=== PATIENT | female | born 1960 | race Hispanic/Latino ===

== ENCOUNTER → 2023-05-20 | Outpatient (CLI) | payer OTHER ==
[~2023-05-20] MED LIST: IOHEXOL 350 MG/ML 100ML INFUS..BTL IV ONE
== END | disposition home or self-care (01) ==
LOC: RAH 08:40
PROVIDERS: ATTEND Internal Medicine Cardiovascular Disease
DX: R07.9 Chest pain, unspecified (principal)
CPT/HCPCS: 75574; Q9967

== ENCOUNTER 2023-07-08 06:02 | Day surgery (SDC) | payer OTHER ==
[2023-07-06 13:52] LABS: BASOPHILS # (AUTO) 0.06 K/uL (0.00-0.20); BASOPHILS % (AUTO) 0.7 % (0.0-5.0); EOSINOPHILS # (AUTO) 0.49 K/uL (0.00-0.70); EOSINOPHILS % (AUTO) 5.9 % (0.0-8.0); HEMATOCRIT 40.9 % (36-48); IMMATURE GRANULOCYTE ABSOLUTE 0.03 K/uL (0-1); LYMPHOCYTES # (AUTO) 3.5 K/uL (1.0-4.8); MEAN CORPUSCULAR HEMOGLOBIN 27.2 pg (27.0-33.0); MEAN CORPUSCULAR HGB CONC 31.8 g/dL (32.0-36.0); MEAN CORPUSCULAR VOLUME 85.6 fL (79-99); MONOCYTES # (AUTO) 0.8 K/uL (0.1-1.0); MONOCYTES % (AUTO) 9.3 % (3.0-13.0); NEUTROPHILS # (AUTO) 3.5 K/uL (1.8-7.7); NEUTROPHILS % (AUTO) 41.7 % (40.0-77.0); PLATELET COUNT (AUTO) 236 K/uL (130-400); RED BLOOD CELL COUNT(AUTO) 4.78 MIL/uL (4.00-5.50); RED CELL DISTRIBUTION WIDTH 12.6 % (11.0-15.5); WHITE BLOOD COUNT (AUTO) 8.3 K/uL (4.8-10.8)
[2023-07-06 14:07] LABS: CREATININE 0.9 mg/dL (0.5-1.0); POTASSIUM 4.1 mmol/L (3.5-5.1)
[2023-07-06 14:13] LABS: APPEARANCE,URINE CLEAR (CLEAR); BILIRUBIN,URINE NEGATIVE (NEGATIVE); COLOR,URINE YELLOW (YELLOW); GLUCOSE, URINE (UA) NEGATIVE (NEGATIVE); KETONES,URINE NEGATIVE (NEGATIVE); LEUKOCYTE ESTERASE ,URINE SMALL Leu/uL (NEGATIVE); NITRATE,URINE NEGATIVE (NEGATIVE); OCCULT BLOOD,URINE NEGATIVE (NEGATIVE); PROTEIN,URINE NEGATIVE (NEGATIVE); UROBILINOGEN,URINE 0.2 mg/dL (0.2-1.0)
[2023-07-06 14:17] VITALS: BP 132/70; PULSE 67; RESP 18
[2023-07-06 14:21] LABS: INR 0.96 (0.85-1.15); PROTHROMBIN TIME 11.4 SEC (9.6-11.6)
[2023-07-06 14:23] LABS: PARTIAL THROMBOPLASTIN TIME 31.8 SEC (26.3-35.5)
[2023-07-06 14:32] LABS: B-TYPE NATRIURETIC PEPTIDE 61 pg/mL (0-100)
[2023-07-06 14:43] LABS: ADD UA MICROSCOPIC YES
[2023-07-06 15:26] LABS: RBC,URINE 0-1 /HPF (0-1); WBC,URINE 0-1 /HPF (0-1)
[2023-07-06 15:27] LABS: BACTERIA,URINE None Seen /HPF (None Seen); SQUAMOUS EPITHELIAL CELL,UR Rare /HPF (0-2)
[2023-07-08] VITALS (10 sets, daily range): BP systolic 99–121; BP diastolic 50–66; PULSE 56–66; RESP 14–17
[~2023-07-08] VITALS: Ht 157.5 cm; Wt 92.1 kg
[~2023-07-08 06:02] MED LIST changes: +AEC81 PO; +AMLO-257 PO; +ATOR20TA65 PO; +CHOL500050 PO; +HYDR200T75 PO; -IOHEXOL 350 MG/ML 100ML INFUS..BTL IV ONE; +METF-444 PO; +METO25TA6 PO; +NITR0.4T50 SL; +OLME20TA68 PO; +VENL-191 PO; +VENL75CA97 PO
[2023-07-08] MEDS: 0.9%NACL 1000ML 1,000 ML IV ONE (06:21)
[2023-07-08] MEDS ORDERED: LIDOCAINE HCL 400MG/20ML VIAL ONE (07:21)
[2023-07-08] MEDS ORDERED: FENTANYL CITRATE PF 50 MCG/1 ML 2ML VIAL ONE (07:21)
[2023-07-08] MEDS ORDERED: BIVALIRUDIN 250 MG/VIAL IV ONE (07:21)
[2023-07-08] MEDS ORDERED: HEPARIN 10,000 UNIT/10ML (1,000 UNIT/ML) VIAL ONE (07:22)
[2023-07-08] MEDS ORDERED: MIDAZOLAM HCL 1 MG/ML 2ML VIAL ONE ×2 (07:22→08:48)
[2023-07-08] MEDS ORDERED: IOHEXOL 350 MG/ML 100ML INFUS..BTL IV ONE (07:22)
[2023-07-08] MEDS ORDERED: NITROGLYCERIN 50MG/D5W 250ML 1 BOT ONE (07:24)
[2023-07-08] MEDS ORDERED: 0.9%NACL 1000ML 1,000 ML IV SCH (08:30)
[2023-07-08] MEDS ORDERED: DEXTROSE 50%-WATER 50 ML DISP.SYRIN IV PRN (08:30)
[2023-07-08] MEDS ORDERED: GLUCAGON 1MG KIT 1 MG ML IM PRN (08:30)
[2023-07-08] MEDS ORDERED: NICARDIPINE 25MG INJ IV ONE (08:46)
[2023-07-08] MEDS ORDERED: MEPERIDINE-PF 25 MG/ML SYG ONE (08:48)
[2023-07-08] MEDS ORDERED: DOPAMINE HCL 400 MG/D5%-WATER 0 ML IV ONE (09:14)
[2023-07-08] MEDS ORDERED: INSULIN HUMULIN R 100 UNIT/ML 3ML SQ SCH (11:30)
== END 2023-07-08 12:40 | disposition home or self-care (01) ==
LOC: DAH 06:02
PROVIDERS: ATTEND Internal Medicine Cardiovascular Disease
DX: R94.39 Abnormal result of other cardiovascular function study (principal); I25.119 Atherosclerotic heart disease of native coronary artery with unspecified angina pectoris; I10 Essential (primary) hypertension; E11.9 Type 2 diabetes mellitus without complications; E78.5 Hyperlipidemia, unspecified; F17.210 Nicotine dependence, cigarettes, uncomplicated; Z79.82 Long term (current) use of aspirin; Z79.84 Long term (current) use of oral hypoglycemic drugs; Z79.899 Other long term (current) drug therapy; Z82.5 Family history of asthma and other chronic lower respiratory diseases; Z82.3 Family history of stroke; Z82.49 Family history of ischemic heart disease and other diseases of the circulatory system; Z83.79 Family history of other diseases of the digestive system
CPT/HCPCS: 80048; 83880; 85025; 85610; 85730; 81001; 36415; 71045; 93005; 93458; 82948 ×2; C1894 ×2; C1760; J3010; J3490 ×3; J7030; J2250 ×2; J2175; Q9967; A4215; A4222; A4221; A4663; A4216; A4606; Q9965; A4223 ×3; 99156; 99157; J0583; J1265; J1644